=== PATIENT | female | born 1950 | race Caucasian/White ===

== ENCOUNTER 2019-08-25 15:09 | Outpatient (CLI) | payer MEDICARE, SELFPAY ==
--- NOTE | 2019-08-25 15:14 | XR_ITS ---
WS: [id number] SCREENING DEXA SCAN [employer] CLINICAL INFORMATION: POST MENOPAUSAL COMPARISON: None. FINDINGS: The L1-L4 bone mineral density measures 1.019 g/cm2. This corresponds to a T score score of -1.3 and Z score of 0.5. Left femoral neck bone mineral density measures 0.827 g/cm2. This corresponds to a T score of -1.4 an d Z score of 0.0. Right femoral neck bone mineral density measures 0.851 g/cm2. This corresponds to a T score -1.2of an d Z score of 0.2. Mean femoral neck bone mineral density measures 0.839 g/cm2. This corresponds to a T score of -1.3 an d Z score of 0.1. XR/XR DEXA axial skeleton* [id number] IMPRESSION: Osteopenia Patient's FRAX calculated 10 year probability for major osteoporotic fracture i s 11.9 % and osteoporotic hip fracture is 2.3%.
== END 2019-08-25 15:10 | disposition home or self-care (01) ==
LOC: RADWPI 15:13
PROVIDERS: PCP Nurse Practitioner Family; Visit Provider Nurse Practitioner Family
DX: Z78.0 Asymptomatic menopausal state (principal)
CPT/HCPCS: 77080

== ENCOUNTER 2020-12-05 09:23 | Outpatient (CLI) | payer MEDICARE, SELFPAY ==
--- NOTE | 2020-12-05 09:40 | XR_ITS ---
WS: [id number] Exam: XR shoulder LT min 2V* [id number] Date/Time of Exam: 12/05/2020 9:45 AM Reason For Exam: L SHOULDER PAIN/L ROTATOR CUFF SYNDROME No acute fracture or dislocation. 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 Kasey l soft tissues. XR/XR shoulder LT min 2V* [id number] IMPRESSION: 1. No fracture or dislocation. 2. 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
== END 2020-12-05 09:24 | disposition home or self-care (01) ==
LOC: RAD 09:30
PROVIDERS: PCP Electrodiagnostic Medicine; Visit Provider Electrodiagnostic Medicine
DX: M25.512 Pain in left shoulder (principal); M75.102 Unspecified rotator cuff tear or rupture of left shoulder, not specified as traumatic; M19.012 Primary osteoarthritis, left shoulder
CPT/HCPCS: 73030

== ENCOUNTER 2021-11-09 14:42 | Outpatient (CLI) | payer MEDICARE, SELFPAY ==
--- NOTE | 2021-11-09 14:49 | MM_ITS ---
WS: [id number] BILATERAL SCREENING DIGITAL BREAST TOMOSYNTHESIS MAMMOGRAM WITH CAD HISTORY: SCREENING COMPARISON: 06/17/2019 and 04/28/2018 Bilateral CC and MLO views with tomosynthesis and synthetic mammography submitted. Computer aided det ection analyzed. Breast composition: There are scattered areas of fibroglandular density. No suspicious masses, microc alcifications or architectural distortion. Benign lymph nodes in the upper outer quadrant of the RIGH T breast are stable over several prior years. MM/[place] [id number] IMPRESSION: BI-RADS: 2-Benign FOLLOW UP: 1 Year Follow-up
--- NOTE | 2021-11-09 14:49 | XR_ITS ---
WS: [id number] DEXA (DUAL ENERGY X-RAY ABSORPTIOMETRY) Bone mineral density was performed using a [employer] machine. HISTORY: Osteopenia; postmenopausal STATUS COMPARISON: 08/25/2019 Lumbar spine BMD (L1-L4): 0.996 g/cm2 T score: -1.5 Z score: 0.3 Total hip BMD: Left: 0.813 g/cm2. T score: -1.5 Z score: 0.0 Right: 0.855 g/cm2. T score: -1.2 Z score: 0.4 10 year probability of a major osteoporotic fracture is 12.4%. Compared to the prior study from 08/25/2019. Lumbar spine bone mineral density has decrease by 2.3%. Bilateral hips bone mineral density has decreased by 0.6%. XR/XR DEXA axial skeleton* [id number] IMPRESSION: OSTEOPENIA based upon the WHO classification for females. Minimal but significant decrease in bone mineral density within the lumbar spin e since the prior study.
== END 2021-11-09 14:43 | disposition home or self-care (01) ==
PROVIDERS: PCP Electrodiagnostic Medicine; Visit Provider Electrodiagnostic Medicine
DX: Z12.31 Encounter for screening mammogram for malignant neoplasm of breast (principal); M85.89 Other specified disorders of bone density and structure, multiple sites; Z78.0 Asymptomatic menopausal state
CPT/HCPCS: 77063; 77067; 77080

== ENCOUNTER → 2022-03-21 09:48 | Outpatient (BNVA) | payer MEDICARE, SELFPAY | PROVIDERS: PCP Family Medicine; Visit Provider Family Medicine | DX: Z00.00 Encounter for general adult medical examination without abnormal findings (principal); I10 Essential (primary) hypertension; Z51.81 Encounter for therapeutic drug level monitoring; Z13.220 Encounter for screening for lipoid disorders; R42 Dizziness and giddiness | CPT/HCPCS: 80053; 80061; 85025 ==

== ENCOUNTER 2022-12-03 08:40 | Outpatient (CLI) | payer SELFPAY ==
[2022-12-03 09:30] LABS: Thyroid Stimulating Hormone 1.86 uIU/mL (0.27-4.20)
== END 2022-12-03 08:41 | disposition home or self-care (01) ==
PROVIDERS: PCP Family Medicine; Visit Provider Dermatology
DX: Z01.89 Encounter for other specified special examinations (principal)
CPT/HCPCS: 36415

== ENCOUNTER → 2023-03-14 10:43 | Outpatient (BNVA) | payer MEDICARE, SELFPAY | PROVIDERS: PCP Family Medicine; Visit Provider Family Medicine | DX: Z51.81 Encounter for therapeutic drug level monitoring (principal); I10 Essential (primary) hypertension; Z13.220 Encounter for screening for lipoid disorders; Z00.00 Encounter for general adult medical examination without abnormal findings | CPT/HCPCS: 80053; 80061; 85025 ==

== ENCOUNTER 2023-04-14 11:36 | Outpatient (CLI) | payer MEDICARE, SELFPAY ==
--- NOTE | 2023-04-14 11:39 | MM_ITS ---
WS: [id number] VIEWS: MLO and CC views both breasts. 3D digital tomosynthesis is also included in this exam. Comparison made with prior exam of 08/26/2013, 02/15/2016, 02/06/2017, , 04/28/2018, 06/17/2019, 11/09/2021 .. Findings: There was no sign of mass, architectural distortion or suspicious calcification in either breast. The breasts are heterogeneously dense which may obscure small masses. Impression: MM/[place] [id number] BI-RADS: 2-Benign finding FOLLOW-UP: 1 Year Follow-up This mammogram was also analyzed by the Computer Aided Detection System [employer].
== END 2023-04-14 11:37 | disposition home or self-care (01) ==
LOC: RAD 11:36
PROVIDERS: PCP Family Medicine; Visit Provider Family Medicine
DX: Z12.31 Encounter for screening mammogram for malignant neoplasm of breast (principal)
CPT/HCPCS: 77063; 77067

== ENCOUNTER → 2024-04-06 09:25 | Outpatient (BNVA) | payer MEDICARE, SELFPAY | PROVIDERS: PCP Family Medicine; Visit Provider Family Medicine | DX: Z00.00 Encounter for general adult medical examination without abnormal findings (principal); N18.9 Chronic kidney disease, unspecified; I10 Essential (primary) hypertension | CPT/HCPCS: 80053; 80061; 85025 ==

== ENCOUNTER 2024-05-03 13:05 | Outpatient (CLI) | payer MEDICARE, SELFPAY ==
--- NOTE | 2024-05-03 13:30 | MM_ITS ---
WS: [email or web address] BILATERAL 3D TOMOSYNTHESIS DIGITAL SCREENING MAMMOGRAPHY WITH CAD CLINICAL INFORMATION: Screening HISTORY: Screening mammogram. No current complaints. COMPARISON: 2022 TECHNIQUE: Bilateral CC and MLO views. FINDINGS: The breasts are composed of heterogeneous fibroglandular density tissue, which can limit the detectio n of small underlying mass lesions. No suspicious mass, asymmetry, calcifications, or architectural d istortion. No evidence of malignancy. Vascular calcification. Similar-appearing nodularity and intram ammary lymph nodes upper outer RIGHT breast. MM/MM [facility] tomosynthesis [id number] IMPRESSION: DENSITY: The breasts are heterogeneously dense, which may obscure small masses. BI-RADS: 2 - Benign FOLLOW UP: 1 Year Follow-up Recommend return to annual screening mammography.
--- NOTE | 2024-05-03 14:30 | XR_ITS ---
WS: [id number] DEXA (DUAL ENERGY X-RAY ABSORPTIOMETRY) Bone mineral density was performed using a [employer] machine. HISTORY: Osteopenia COMPARISON: 11/09/2021 Lumbar spine BMD (L1-L4): 0.953 g/cm2 T score: -1.9 Z score: 0.0 Total hip BMD: Left: 0.794 g/cm2. T score: -1.7 Z score: 0.0 Right: 0.838 g/cm2. T score: -1.4 Z score: 0.4 10 year probability of a major osteoporotic fracture is 14.2%. Compared to the prior study from 11/09/2021. Lumbar spine bone mineral density has decreased by 4.3%. Bilateral hips bone mineral density has decreased by 2.2%. XR/XR DEXA axial skeleton* [id number] IMPRESSION: OSTEOPENIA based upon the WHO classification for females. Significant decrease in bone mineral density within the lumbar spine and hips s go the prior study.
== END 2024-05-03 13:06 | disposition home or self-care (01) ==
LOC: RAD 13:05
PROVIDERS: PCP Family Medicine; Visit Provider Family Medicine
DX: Z12.31 Encounter for screening mammogram for malignant neoplasm of breast (principal); Z78.0 Asymptomatic menopausal state; R92.323 Mammographic fibroglandular density, bilateral breasts; R92.1 Mammographic calcification found on diagnostic imaging of breast; Z13.820 Encounter for screening for osteoporosis; M85.80 Other specified disorders of bone density and structure, unspecified site
CPT/HCPCS: 77063; 77067; 77080

== ENCOUNTER → 2024-11-18 10:30 | Outpatient (BNVA) | payer MEDICARE, SELFPAY | PROVIDERS: PCP Family Medicine; Visit Provider Family Medicine | DX: R19.7 Diarrhea, unspecified (principal) | CPT/HCPCS: 87177; 87209; 87493 ==

== ENCOUNTER → 2024-12-01 03:30 | Outpatient (BNVA) | payer MEDICARE, SELFPAY | PROVIDERS: PCP Family Medicine; Visit Provider Family Medicine | DX: R19.7 Diarrhea, unspecified (principal); Z51.81 Encounter for therapeutic drug level monitoring | CPT/HCPCS: 85025; 87045; 87427; 87449 ==

== ENCOUNTER 2024-12-02 07:50 | Outpatient (CLI) | payer MEDICARE, SELFPAY ==
[2024-12-02 08:48] LABS: Basophils # 0.1 10^3/uL (0.0-0.1); Eosinophils # 0.2 10^3/uL (0.0-0.8); Hematocrit 42.1 % (36-47); Lymphocytes # 1.6 10^3/uL (0.8-4.8); Lymphocytes % 31.2 %; Mean Corpuscular HGB Conc 33.3 g/dL (30-55); Mean Corpuscular Hemoglobin 31.9 pg (27-33); Mean Corpuscular Volume 95.9 fl (85-98); Mean Platelet Volume 9.2 fL (7.4-10.4); Monocytes # 0.6 10^3/uL (0.2-0.9); Monocytes % 11.2 %; Neutrophils # 2.73 10^3/uL (1.8-7.7); Neutrophils % 52.4 %; Nucleated Red Blood Cells % 0 %; Platelet Count 261 10^3/cmm (157-399); Red Blood Count 4.39 10^6/uL (3.85-5.65); Red Cell Distribution Width 12.7 % (12.1-15.1)
[2024-12-02 09:17] LABS: Alanine Aminotransferase 20 U/L (0-33); Albumin Level 4.1 g/dL (3.5-5.2); Alkaline Phosphatase 63 U/L (35-105); Anion Gap 17.5 (5-19); Aspartate Amino Transferase 24 U/L (0-32); Blood Urea Nitrogen 20 mg/dL (8-23); Calcium 9.9 mg/dL (8.5-10.5); Carbon Dioxide 21 mmol/L (22-29); Chloride 105 mmol/L (98-107); Globulin 2.5 g/dL (1.3-4.6); Glucose 102 mg/dL (65-115); Osmolality Calculated 291 mOsm/kg (285-295); Potassium 4.5 mmol/L (3.5-5.1); Sodium 139 mmol/L (136-145); Total Bilirubin 0.3 mg/dL (0.15-1.2); Total Protein 6.6 g/dL (6.6-8.7)
[2024-12-02 09:24] LABS: Hepatitis A Antibody IgM Non-Reactive (Nonreactive)
[2024-12-04 06:49] LABS: Cytomegalovirus Antibody (IGG) >10.00 U/mL; Cytomegalovirus Antibody (IGM) <30.00 AU/mL; EBV IGG TEST >750.00 U/mL; EBV IGM TEST <36.00 U/mL; EBV Nuclear AG >600.00 U/mL
== END 2024-12-02 07:51 | disposition home or self-care (01) ==
PROVIDERS: PCP Family Medicine; Visit Provider Family Medicine
DX: R19.7 Diarrhea, unspecified (principal); Z51.81 Encounter for therapeutic drug level monitoring
CPT/HCPCS: 36415; 80053; 85025; 86664; 86665; 86709; 87328; 87329; 87425

== ENCOUNTER → 2025-04-20 11:06 | Outpatient (BNVA) | payer MEDICARE, SELFPAY | PROVIDERS: PCP Family Medicine; Visit Provider Family Medicine | DX: E55.9 Vitamin D deficiency, unspecified (principal); Z51.81 Encounter for therapeutic drug level monitoring; Z13.6 Encounter for screening for cardiovascular disorders | CPT/HCPCS: 80053; 80061; 82306; 85025 ==

== ENCOUNTER 2025-05-05 10:32 | Outpatient (CLI) | payer MEDICARE, SELFPAY ==
--- NOTE | 2025-05-05 11:20 | MM_ITS ---
WS: [id number] BILATERAL SCREENING DIGITAL TOMOSYNTHESIS MAMMOGRAM WITH CAD HISTORY: Screening mammogram COMPARISON: 05/03/2024, 04/14/2023, 04/28/2018 Bilateral CC and MLO views with tomosynthesis and synthetic mammography submitted. Computer aided detection analyzed. Breast composition: The breasts are heterogeneously dense, which may obscure small masses. No suspicious masses, microcalcifications or architectural distortion. Cluster of lymph nodes in the upper outer quadrant RIGHT breast are stable over multiple years. MM/MM scr tomosynthesis [id number] IMPRESSION: BI-RADS: 2 - Benign FOLLOW UP: 1 Year Follow-up
== END 2025-05-05 10:33 | disposition home or self-care (01) ==
LOC: RAD 10:33
PROVIDERS: PCP Family Medicine; Visit Provider Family Medicine
DX: Z12.31 Encounter for screening mammogram for malignant neoplasm of breast (principal); R92.333 Mammographic heterogeneous density, bilateral breasts; N63.11 Unspecified lump in the right breast, upper outer quadrant
CPT/HCPCS: 77063; 77067